=== PATIENT | female | born 1940 | race Caucasian/White ===

== ENCOUNTER 2016-09-21 00:17 | Emergency (ER) | payer MEDICARE ==
[~2016-09-21] VITALS: Ht 157.5 cm; Wt 109.8 kg
[~2016-09-21 00:17] MED LIST: CALCIUM + D 6001 TAB PO; CARDIZEM GENERI30 MG PO; CHEWABLE ASPIRI81 M1 PO; CLINDAMYCIN HC300 MG PO; COUMADIN 2MG TAB2 MG PO; DIGOXIN0.25 MG PO; DILTIAZEM240 M1 PO; FUROSEMIDE80 M1 PO; INCRUSE EL62.5 MCG/A IH; K-DUR 2020 MEQ PO; KEFLEX 500MG.500 MG PO; LASIX 40MG. TAB40 MG PO; LEVAQUIN500 MG PO; LEVOTHYROXINE0.05 MG PO; LOPRESSOR 25MG.25 M1 OR; LORTAB 500 MG-11 TAB PO; METOPROLOL 25 M25 MG PO; MONODOX100 MG PO; MUPIROCIN2% TP; NITROGLYCERIN0.4 MG SL; NITROLINGU0.4 MG/ACT SL; OMEPRAZOLE20 MG PO; OMNICEF 300 MG300 MG PO; PRILOSEC OTC20 MG PO; PROTONIX 40MG T40 MG PO; RISPERDAL 0.20.25 MG PO; RISPERDAL0.25 MG PO; SERTRALINE 100100 MG PO; SILVADENE CR 4400 GM EX; SIMVASTATIN80 MG PO; SOTALOL HCL120 MG PO; SPIRIVA18 MCG IH; UNASYN IV; VICODIN 5/500 T1 TAB PO; VITAMIN D32000 IU; WARFARIN SOD5 MG PO; ZOFRAN4 MG PO; ZYVOX600 MG PO; [UNRECOGNIZED DRUG - OTHER] PO
[2016-09-21 00:47] LABS: HEMOGLOBIN 13.9 g/dL (12.2-16.2); LYMPH # 1.2 K/mm3 (0.7-4.5); LYMPH % 14.3 % (10-50.0)
--- NOTE | 2016-09-21 02:30 | Emergency Room Report ---
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 N Clinical Suspician of Infection? N Mental Status: 1 - Regular (Normal Baseline) Sepsis Risk:Low Sepsis Risk Have you (or family members/close friends) recently traveled outside the [place]? N If Yes, where/when: Have you had exposure to infectious disease within the past month? N TB? Other? Specify: Source patient, RN notes reviewed, EMS, [facility] records, old records Exam Limitations no limitations Comment pt with multiple c/o with chest pain and back pain and cough - she has recent bronchial infection Cardiac Chest Pain Chest pain indicative of cardiac No Timing/Duration this evening Severity moderate ALLERGIES Coded Allergies: atorvastatin (Intermediate, I-RASH 08/04/15) Home Medications Active Scripts MUPIROCIN (Mupirocin 2% OINT) 0 GM TP TID #2 Ref 2 Prov: 06/09/16 Linezolid (Zyvox TABLET) 600 MG PO BID #20 TAB Prov: 09/14/16 Furosemide (Lasix 40MG) 40 MG PO DAILY 30 Days Prov: 06/14/16 Risperidone (Risperdal) 0.25 MG PO QHS 30 Days Prov: 06/14/16 Diltiazem Hcl (Cardizem Generic 60MG Tab) 60 MG PO TID 30 Days Prov: 06/14/16 DIGOXIN (Digox) 0.25 MG PO DAILY #30 TAB Ref 2 Prov: 05/09/15 Discontinued Scripts AMPICILLIN SODIUM-SULBACTAM (Unasyn 3 Gm Vial) 3 GM IV Q6H6 10 Days Prov: 06/14/16 DC: 09/14/16 1310 Reported Medications Potassium Chloride (K-Dur) 20 MEQ PO 90 Days Tiotropium [place] (Spiriva) 18 MCG IH DAILY Sertraline Hydrochloride (Sertraline 100MG) 150 MG PO DAILY Aspirin (Chewable Aspirin) 81 MG PO DAILY Levothyroxine Sodium (Levothyroxine) 0.05 MG PO DAILY Simvastatin 80 MG PO DAILY Omeprazole (Omeprazole 20MG) 20 MG PO DAILY NITROGLYCERIN (Nitrostat) 0.4 MG SL [id number] PRN CHEST PAIN History Medical History General CAD? No Angina: Yes ID: No Hypertension? No Hyperlipidemia? Yes CHF? No DVT? No PE? No COPD? Yes Asthma? Yes Anemia? No GERD? No Gastric ulcers? No GI Bleed? No Hernia? Yes Thyroid Problems? No Hypothyroidism? No CVA? No Seizures? No Diabetes? No Insulin Dependent: No Insulin Pump: No Home FSBS? No Renal Insuffiency? No End Stage Renal Disease? No UTI? No Stones? No BPH? No GB Disease: No Nephritic Syndrome? No Asplenia? No Hepatitis? No Sickle Cell Disease? No Arthritis? No Migraines? No Cataracts? Yes Glaucoma? No MRSA? No HIV? No TB? No Anxiety? No Depression? No Cancer? No More? Yes Additional hx: PHLEBITIS AND CELLULITIS TO BOTH LEGS Immunization Hx DT/Tetanus Unknown Flu [id number] Pneumonia Refuses Surgical Hx Previous Surgery?Y STENTS X 3-CARDIAC HAND SURGERY BILATERLLY T&A BUNIONECTOMY HEMMORHOIDECTOMY TUMOR OFF LT 4TH FINGER SINUS SURGERY UVULAECTOMY D & C CATARACT SURGERY X 2 L KNEE REPLACEMENT Family History Family Hx Diabetes No CAD Yes Hypertension Yes Hyperlipidemia Yes Cancer No TB No Social History Smoking Hx Smoker: Never Smoker Tobacco: No Type N/A Alcohol Alcohol: No Drugs none Review of Systems All Other Systems Reviewed and Negative Constitutional denies fever Eyes denies drainage ENT denies: ear pain, epistaxis, throat pain. Respiratory cough, shortness of breath, denies wheezing Cardiovascular see HPI, chest pain, denies syncope Gastrointestinal denies abdominal pain, denies diarrhea, denies vomiting Genitourinary denies: dysuria, frequency, hesitancy, hematuria. Musculoskeletal denies back pain, denies joint pain, denies joint swelling, denies neck pain Skin denies rash Psychiatric/Neurological denies headache, denies seizure Physical Exam Vital Signs Vital Signs Date Time Temp Pulse Resp B/P Pulse O2 O2 Flow FiO2 Ox Delivery Rate 09/21 0257 75 18 92/62 97 2 09/21 0223 82 18 97/51 97 2 09/21 0149 81 18 146/64 98 2 09/21 0122 72 18 146/54 98 2 09/21 0022 98.6 63 18 133/62 96 2 - WBC >12,000 or <4,000 or 10% bands? 2 or more SIRS Criteria Met? B/P:97/51 MAP:85 Creatinine >2.0? UA output<0.5ml/kg/hr for 2 hrs? Platelet count >100,000? Lactate >2.0mmol/1? INR >1.2 or PTT > than 60 sec? Evidence of Organ Dysfunction? Provider documented clinical suspician of infection? N Sepsis Criteria Count: 0 Sepsis Risk: Low Sepsis Risk General Appearance no apparent distress Eye Exam - bilateral eye PERRL, bilateral eye EOMI Ear, Nose, Throat normal ENT inspection Neck supple Respiratory Status No: respiratory distress. Lung Sounds bilateral: decreased breath sounds. 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 No Results/Orders Laboratory Tests 09/21/16 0027: Sodium 138, Potassium 4.1, Chloride 99, Carbon Dioxide 39 H, BUN 21 H, Creatinine 0.9, Estimated Creat Clear 95, Estimated GFR (MDRD) 61, Glucose 98, Calcium 8.6, Total Bilirubin 0.4, AST 15, ALT 17, Alkaline Phosphatase 93, Creatine Kinase 18 L, CK-MB (CK-2) Rel Index 7.2 H, CK and CKMB Interp 1.3, Troponin I 0.03, Total Protein 7.5, Albumin 2.8 L, Globulin 4.7 H, Albumin/ Globulin Ratio 0.6 L, WBC 8.5, RBC 4.72, Hgb 13.9, Hct 43.5, MCV 92.1, RDW 15.7 , Plt Count 263, MPV 8.6, Gran % 72.6, Gran # 6.2, Lymphocytes % 14.3, Monocytes % 7.5, Eosinophils % 5.3, Basophils % 0.4, Lymphocytes # 1.2, Monocytes # 0.6, Eosinophils # 0.5 H, Basophils # 0.0, PUBS MCHC 32.1, MCH 29.5 Current Medication Orders Sig/Swati Start time Last Medication Dose Route Stop Time Status Admin Sodium Chloride 10 ML PRN PRN 09/21 44 AC IV 09/22 31 Orders Procedure Date/time Status OXYGEN REQUEST 09/21 32 Active CHEST-PORTABLE 09/21 32 Active IV SALINE LOCK 09/21 32 Active TOOL PROGRAMMER 09/21 32 Active COMPLETE METABOLIC PANEL 09/21 32 Complete CBC WITH AUTO DIFF 09/21 32 Complete CARDIAC ENZYMES 09/21 32 Complete OXYGEN REQUEST 09/21 19 Active CM/EKG CM/client resolution specialist Rhythm Atrial Fibrillation EKG compared w/(date of old) (09/11/16), non-spec. ST/Twave chgs XRAY/CT/US XRAY/CT/US XRAY chest XR interpretation by reviewed by me Xray Results abnormal (cm) Departure Departure Time of Disposition 0244 Disposition DC Home or Self Care(routine) Clinical Impression Primary Impression: Chest pain Qualifiers: Chest pain type: unspecified Qualified Code: R07.9 - Chest pain, unspecified Secondary Impressions: Atrial fibrillation Qualifiers: Atrial fibrillation type: chronic Qualified Code: I48.2 - Chronic atrial fibrillation Condition STABLE Referrals Timmy Laurent MD (Family) Patient Instructions DI for Atrial Fibrillation Additional Instructions resume prev orders Discharge Counseling Counseled pt/family regarding diagnosis, test results, medications/RX, follow up needs ED Critical Care Critical Care No at 0304
--- NOTE | 2016-09-21 02:30 | Emergency Room Report ---
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 N Clinical Suspician of Infection? N Mental Status: 1 - Regular (Normal Baseline) Sepsis Risk:Low Sepsis Risk Have you (or family members/close friends) recently traveled outside the [place]? N If Yes, where/when: Have you had exposure to infectious disease within the past month? N TB? Other? Specify: Source patient, RN notes reviewed, EMS, jail records, old records Exam Limitations no limitations Comment pt with multiple c/o with chest pain and back pain and cough - she has recent bronchial infection Cardiac Chest Pain Chest pain indicative of cardiac No Timing/Duration this evening Severity moderate ALLERGIES Coded Allergies: atorvastatin (Intermediate, I-RASH 08/04/15) Home Medications Active Scripts MUPIROCIN (Mupirocin 2% OINT) 0 GM TP TID #2 Ref 2 Prov: 06/09/16 Linezolid (Zyvox TABLET) 600 MG PO BID #20 TAB Prov: 09/14/16 Furosemide (Lasix 40MG) 40 MG PO DAILY 30 Days Prov: 06/14/16 Risperidone (Risperdal) 0.25 MG PO QHS 30 Days Prov: 06/14/16 Diltiazem Hcl (Cardizem Generic 60MG Tab) 60 MG PO TID 30 Days Prov: 06/14/16 DIGOXIN (Digox) 0.25 MG PO DAILY #30 TAB Ref 2 Prov: 05/09/15 Discontinued Scripts AMPICILLIN SODIUM-SULBACTAM (Unasyn 3 Gm Vial) 3 GM IV Q6H6 10 Days Prov: 06/14/16 DC: 09/14/16 1310 Reported Medications Potassium Chloride (K-Dur) 20 MEQ PO 90 Days Tiotropium [place] (Spiriva) 18 MCG IH DAILY Sertraline Hydrochloride (Sertraline 100MG) 150 MG PO DAILY Aspirin (Chewable Aspirin) 81 MG PO DAILY Levothyroxine Sodium (Levothyroxine) 0.05 MG PO DAILY Simvastatin 80 MG PO DAILY Omeprazole (Omeprazole 20MG) 20 MG PO DAILY NITROGLYCERIN (Nitrostat) 0.4 MG SL [id number] PRN CHEST PAIN History Medical History General CAD? No Angina: Yes PA: No Hypertension? No Hyperlipidemia? Yes CHF? No DVT? No PE? No COPD? Yes Asthma? Yes Anemia? No GERD? No Gastric ulcers? No GI Bleed? No Hernia? Yes Thyroid Problems? No Hypothyroidism? No CVA? No Seizures? No Diabetes? No Insulin Dependent: No Insulin Pump: No Home FSBS? No Renal Insuffiency? No End Stage Renal Disease? No UTI? No Stones? No BPH? No GB Disease: No Nephritic Syndrome? No Asplenia? No Hepatitis? No Sickle Cell Disease? No Arthritis? No Migraines? No Cataracts? Yes Glaucoma? No MRSA? No HIV? No TB? No Anxiety? No Depression? No Cancer? No More? Yes Additional hx: PHLEBITIS AND CELLULITIS TO BOTH LEGS Immunization Hx DT/Tetanus Unknown Flu 2015-17FSN Pneumonia Refuses Surgical Hx Previous Surgery?Y STENTS X 3-CARDIAC HAND SURGERY BILATERLLY T&A BUNIONECTOMY HEMMORHOIDECTOMY TUMOR OFF LT 4TH FINGER SINUS SURGERY UVULAECTOMY D & C CATARACT SURGERY X 2 L KNEE REPLACEMENT Family History Family Hx Diabetes No CAD Yes Hypertension Yes Hyperlipidemia Yes Cancer No TB No Social History Smoking Hx Smoker: Never Smoker Tobacco: No Type N/A Alcohol Alcohol: No Drugs none Review of Systems All Other Systems Reviewed and Negative Constitutional denies fever Eyes denies drainage ENT denies: ear pain, epistaxis, throat pain. Respiratory cough, shortness of breath, denies wheezing Cardiovascular see HPI, chest pain, denies syncope Gastrointestinal denies abdominal pain, denies diarrhea, denies vomiting Genitourinary denies: dysuria, frequency, hesitancy, hematuria. Musculoskeletal denies back pain, denies joint pain, denies joint swelling, denies neck pain Skin denies rash Psychiatric/Neurological denies headache, denies seizure Physical Exam Vital Signs Vital Signs Date Time Temp Pulse Resp B/P Pulse O2 O2 Flow FiO2 Ox Delivery Rate 09/21 0257 75 18 92/62 97 2 09/21 0223 82 18 97/51 97 2 09/21 0149 81 18 146/64 98 2 09/21 0122 72 18 146/54 98 2 09/21 0022 98.6 63 18 133/62 96 2 - WBC >12,000 or <4,000 or 10% bands? 2 or more SIRS Criteria Met? B/P:97/51 MAP:85 Creatinine >2.0? UA output<0.5ml/kg/hr for 2 hrs? Platelet count >100,000? Lactate >2.0mmol/1? INR >1.2 or PTT > than 60 sec? Evidence of Organ Dysfunction? Provider documented clinical suspician of infection? N Sepsis Criteria Count: 0 Sepsis Risk: Low Sepsis Risk General Appearance no apparent distress Eye Exam - bilateral eye PERRL, bilateral eye EOMI Ear, Nose, Throat normal ENT inspection Neck supple Respiratory Status No: respiratory distress. Lung Sounds bilateral: decreased breath sounds. 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 No Results/Orders Laboratory Tests 09/21/16 0027: Sodium 138, Potassium 4.1, Chloride 99, Carbon Dioxide 39 H, BUN 21 H, Creatinine 0.9, Estimated Creat Clear 95, Estimated GFR (MDRD) 61, Glucose 98, Calcium 8.6, Total Bilirubin 0.4, AST 15, ALT 17, Alkaline Phosphatase 93, Creatine Kinase 18 L, CK-MB (CK-2) Rel Index 7.2 H, CK and CKMB Interp 1.3, Troponin I 0.03, Total Protein 7.5, Albumin 2.8 L, Globulin 4.7 H, Albumin/ Globulin Ratio 0.6 L, WBC 8.5, RBC 4.72, Hgb 13.9, Hct 43.5, MCV 92.1, RDW 15.7 , Plt Count 263, MPV 8.6, Gran % 72.6, Gran # 6.2, Lymphocytes % 14.3, Monocytes % 7.5, Eosinophils % 5.3, Basophils % 0.4, Lymphocytes # 1.2, Monocytes # 0.6, Eosinophils # 0.5 H, Basophils # 0.0, PUBS MCHC 32.1, MCH 29.5 Current Medication Orders Sig/Swati Start time Last Medication Dose Route Stop Time Status Admin Sodium Chloride 10 ML PRN PRN 09/21 44 AC IV 09/22 31 Orders Procedure Date/time Status OXYGEN REQUEST 09/21 32 Active CHEST-PORTABLE 09/21 32 Active IV SALINE LOCK 09/21 32 Active POOL LIFEGUARD 09/21 32 Active COMPLETE METABOLIC PANEL 09/21 32 Complete CBC WITH AUTO DIFF 09/21 32 Complete CARDIAC ENZYMES 09/21 32 Complete OXYGEN REQUEST 09/21 19 Active CM/EKG CM/beater room helper Rhythm Atrial Fibrillation EKG compared w/(date of old) (09/11/16), non-spec. ST/Twave chgs XRAY/CT/US XRAY/CT/US XRAY chest XR interpretation by reviewed by me Xray Results abnormal (cm) Departure Departure Time of Disposition 0244 Disposition DC Home or Self Care(routine) Clinical Impression Primary Impression: Chest pain Qualifiers: Chest pain type: unspecified Qualified Code: R07.9 - Chest pain, unspecified Secondary Impressions: Atrial fibrillation Qualifiers: Atrial fibrillation type: chronic Qualified Code: I48.2 - Chronic atrial fibrillation Condition STABLE Referrals Timmy Laurent MD (Family) Patient Instructions DI for Atrial Fibrillation Additional Instructions resume prev orders Discharge Counseling Counseled pt/family regarding diagnosis, test results, medications/RX, follow up needs ED Critical Care Critical Care No at 0304
[2016-09-21 03:42] VITALS: BP 92/62
--- NOTE | 2016-09-21 07:08 | RADIOLOGY REPORT PS360 ---
CHEST-PORTABLE HISTORY: CHEST PAIN COMPARISON: 09/11/2016 FINDINGS: There is cardiomegaly without failure. The study is underpenetrated with incomplete evaluation of the lung bases. IMPRESSION: Limited exam, cardiomegaly, no change.
== END 2016-09-21 03:58 | disposition home or self-care (01) ==
LOC: ER 00:17
PROVIDERS: Emergency Medicine
DX: R07.9 Chest pain, unspecified (principal); I48.2 Chronic atrial fibrillation; J44.9 Chronic obstructive pulmonary disease, unspecified

== ENCOUNTER → 2017-05-24 | Outpatient (CLI) | payer MEDICARE ==
[2017-05-24 16:58] LABS: LYMPH # 1.9 K/mm3 (0.7-4.5); LYMPH % 24.4 % (10-50.0)
[2017-05-24 17:00] LABS: HEMOGLOBIN 14.4 g/dL (12.2-16.2)
--- NOTE | 2017-05-24 17:15 | RADIOLOGY REPORT PS360 ---
US PELVIS-TRANSVAGINAL ONLY HISTORY: POST MENOPAUSAL BLEEDING ORDERING PHYSICIAN: Timmy Laurent MD PATIENT AGE: 77 years COMPARISON: None FINDINGS: Study is technically very difficult to perform. No normal anatomy identified. A heterogeneous mass is noted at the region of the cervix measuring approximately 8 x 8 cm. What appears to represent the uterus is approximately 7 x 3 cm. Was felt to represent the right ovary is proximal to centimeters. Left ovary is not adequately demonstrated. IMPRESSION: Complex heterogeneous pelvic mass possibly arising from the cervix or from the rectum into the cervix. CT with IV and oral contrast recommended for further evaluation.
[2017-05-24 17:32] LABS: BUN 12 mg/dL (7-18)
[2017-05-24 17:33] LABS: GFR (ESTIMATED) 97 ML/MIN (59-)
--- NOTE | 2017-05-25 09:34 | RADIOLOGY REPORT PS360 ---
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 PROCEDURE: Oral Contrast: None IV Contrast: None . FINDINGS: There is a large hiatal hernia containing two thirds of the stomach. Atelectatic changes are present in the left lung base from the hernia. Cardiomegaly with mitral valve annular calcifications and coronary artery calcifications. Liver, gallbladder, spleen, adrenal glands, and pancreas have an unremarkable appearance. No renal calculi or hilar versus. 15 mm cortical cyst arises from the superior pole the right kidney. There is a small umbilical hernia containing fat. No intestinal obstruction or free air. There is sigmoid and descending colon diverticulosis but no evidence of diverticulitis. An unusual density is present within the upper vaginal region probably related to an indwelling device in an attempt to stop vaginal bleeding. Please correlate with clinical findings. There is no evidence of gas within the urinary bladder. No contrast is evident within the vaginal area however, it would be difficult to see small amount of contrast secondary to the indwelling device within the vagina. This device may be the cause of the abnormality noted on the pelvic ultrasound. Please correlate clinically. No acute bony anomalies. There is moderate levoscoliosis of the lumbar spine with degenerative disc disease. IMPRESSION: 1. Large hiatal hernia. 2. There is an intravaginal device present likely related to a tamponade device for vaginal bleeding. Please correlate with clinical findings. 3. Sigmoid and descending colon diverticulosis without diverticulitis.
[2017-05-26 09:37] LABS: Cancer Antigen (CA) 125 17.6 U/mL (0.0-38.1)
== END ==
LOC: LAB 14:58 → RAD 14:58
PROVIDERS: Internal Medicine Adolescent Medicine
DX: N95.0 Postmenopausal bleeding (principal); N82.3 Fistula of vagina to large intestine; R19.00 Intra-abdominal and pelvic swelling, mass and lump, unspecified site
CPT/HCPCS: Q9967